=== PATIENT | female | born 1945 | race Caucasian/White ===

== ENCOUNTER 2016-09-30 16:34 | Emergency (ER) | payer MEDICARE ==
[2016-09-30 17:25] LABS: Hematocrit 33 % (35-47); Hemoglobin 10.8 g/dl (12.0-16.0); Mean Corpuscular HGB Conc 33 g/dl (31-36); Mean Corpuscular Hemoglobin 29 pg (27-31); Mean Corpuscular Volume 86 fL (80-97); Mean Platelet Volume 10 um3 (7.4-10.4); Red Blood Count 3.79 10^6/ul (4.0-5.4); Red Cell Distribution Width 14 % (10.5-15); White Blood Count 7.5 10^3/ul (3.5-10.8)
[2016-09-30 17:37] LABS: Urine Bilirubin Negative (Negative); Urine Glucose Negative (Negative); Urine Nitrite Negative (Negative)
[2016-09-30 17:40] LABS: Albumin 3.5 g/dL (3.2-5.2); BUN/Creatinine Ratio 9.8 (8-20); C Reactive Protein 6.49 mg/L (< 5.00); Calcium 7.9 mg/dL (8.6-10.3); EGFR African American 77.6 (>60); EGFR Non-African American 60.3 (>60); Globulin 2.7 g/dL (2-4); Potassium 2.8 mmol/L (3.5-5.0); Total Bilirubin 0.7 mg/dL (0.2-1.0); Total Protein 6.2 g/dL (6.4-8.9)
[2016-09-30 17:43] LABS: Troponin I 0.01 ng/mL (<0.04)
--- NOTE | 2016-09-30 17:45 | RAD ---
Indication: Shortness of breath. Bilateral lower extremity swelling for one week. Cardiac disease and seasonal asthma. Comparison: April 24, 2015 Technique: Sitting AP and lateral chest views. Report: Large body habitus limits image quality. Accounting for AP technique the heart appears upper normal in size. Unremarkable central pulmonary vasculature. Mild prominence of the interstitial markers and RIGHT costophrenic angle linear subsegmental atelectasis. Grossly clear pleural spaces. Negative for pneumothorax. IMPRESSION: Upper normal heart size. No compelling evidence for pulmonary edema. Mild RIGHT basilar subsegmental atelectasis. No compelling evidence for pulmonary edema.
[2016-09-30 18:52] LABS: Magnesium 1.5 mg/dL (1.9-2.7)
[2016-09-30] MEDS ORDERED: Furosemide IV* 10 MG/ML 2 ML VIAL (20 MG) IV SLOW PU ONE (18:57)
[2016-09-30] MEDS ORDERED: Potassium Chlor TAB* 20 MEQ TAB.ER PO ONE (18:58)
[2016-09-30 20:19] VITALS: BP 145/54
--- NOTE | 2016-10-02 17:17 | ED ---
Harpreet Rasmussen Auryana, scribed for Artem Prieto MD on 09/30/16 at 1728 . Lower Extremity - HPI Summary HPI Summary: 70 y/o female presents to ED c/o bilateral edema and pain in the feet. The swelling has come on gradually and has worsened in the past few days. Patient also has SOB, back pain and fever a few days before, but none on ED visit. She denies CP, chills and cough. Patient states it is extremely painful to walk and uses a wheelchair. Patient was recently given compression wraps by a vascular surgeon that seemed to alleviate symptoms, but the patient had difficulty keeping the wraps in place so she abandoned use. PMHx - DM, thyroid disease, and chronic kidney disease. - History of Current Complaint Chief Complaint: EDShortnessOfBreath Stated Complaint: SOB/BOTH FEET SWOLLEN Time Seen by Provider: 09/30/16 16:50 Hx Obtained From: Patient Hx Last Menstrual Period: N/A Mechanism Of Injury: Unknown Onset of Pain: Days, Prior to Arrival Onset/Duration: Still Present Severity Initially: Moderate Severity Currently: Moderate Pain Intensity: 8 Pain Scale Used: 0-10 Numeric Timing: Constant Location: Is Discrete @ - bilateral feet. Associated Signs And Symptoms: Positive: Swelling - bilateral feet, Other - back pain, SOB, and pain - bilateral feet. Negative: Fever Aggravating Factor(s): Standing, Weight Bearing - Extremely painful to walk Alleviating Factor(s): Rest - \, Elevation - Keeps feet up at home in hospital bed Able to Bear Weight: No - Risk Factors Gout Risk Factors: Age Over 40, Diabetes, Hypertension - Allergies/Home Medications Allergies/Adverse Reactions: Allergies Allergy/AdvReac Type Severity Reaction Status Date / Time Tramadol [From Ultram] Allergy Severe Hallucinati Verified 11/17/15 07:02 ons Celecoxib [From Celebrex] Allergy Intermediate Swelling Verified 11/17/15 07:02 Diclofenac Allergy Intermediate GI Upset Verified 11/17/15 07:02 Fluconazole [From Diflucan] Allergy Intermediate Hives Verified 11/17/15 07:02 Ibuprofen [From Motrin] Allergy Intermediate Bleeding Verified 11/17/15 07:02 Loratadine [From Claritin] Allergy Intermediate Hives Verified 11/17/15 07:02 Metoclopramide [From Reglan] Allergy Intermediate Hives Verified 11/17/15 07:02 Rofecoxib [From Vioxx] Allergy Intermediate Swelling Verified 11/17/15 07:02 Gabapentin Allergy Mild Swelling Verified 11/17/15 07:02 Topiramate Allergy Mild See Comment Verified 11/17/15 07:02 Acetaminophen [From Vicodin] Allergy Unknown STATES Verified 11/17/15 07:02 CANNOT TAKE BECAUSE OF HER KIDNEYS CI Pigment Blue 63 Allergy Unknown Swelling Verified 11/17/15 07:02 [From Cymbalta] Duloxetine [From Cymbalta] Allergy Unknown Swelling Verified 11/17/15 07:02 Glycerin Allergy Unknown SWELLING, Verified 11/17/15 07:02 HIVES Hydrocodone [From Vicodin] Allergy Unknown Swelling Verified 11/17/15 07:02 Omeprazole [From Prilosec] Allergy Unknown STATES Verified 11/17/15 07:02 WASN'T HELPING Sulfa Antibiotics Allergy Unknown Unknown Verified 11/17/15 07:02 Reaction Details Valdecoxib [From Bextra] Allergy Unknown Unknown Verified 11/17/15 07:02 Reaction Details Adhesive Tape Allergy Unknown Verified 11/17/15 07:02 Reaction Details Hydromorphone Allergy Swelling Verified 11/17/15 07:02 Metaxalone [From Skelaxin] Allergy Unknown Verified 11/17/15 07:02 Reaction Details Pregabalin [From Lyrica] Allergy Swelling Verified 11/17/15 07:02 Codeine AdvReac Severe Hallucinati Verified 11/17/15 07:02 ons Misoprostol AdvReac Intermediate GI Upset Verified 11/17/15 07:02 Morphine AdvReac Intermediate Nausea Verified 11/17/15 07:02 Penicillins [PCN] AdvReac Unknown Unknown Verified 11/17/15 07:02 Reaction Details Tetracycline AdvReac Unknown Unknown Verified 11/17/15 07:02 Reaction Details PMH/Surg Hx/FS Hx/Imm Hx Endocrine/Hematology History: Reports: Hx Diabetes - TYPE II- INSULIN FOR, Hx Thyroid Disease - ON MEDICATION FOR, Hx Anemia - OCCASIONALLY Cardiovascular History: Reports: Hx Hypertension - ON MEDICATION FOR, Other Cardiovascular Problems/Disorders - DR. MUNOZ- [employer] Respiratory History: Reports: Hx Asthma - SEASONAL, Hx Seasonal Allergies, Hx Sleep Apnea Denies: Hx Chronic Obstructive Pulmonary Disease (COPD), Other Respiratory Problems/Disorders GI History: Reports: Hx Gastroesophageal Reflux Disease - ON MEDICATION FOR, Hx Hiatal Hernia Denies: Hx Ulcer Musculoskeletal History: Reports: Hx Arthritis - BILATERAL FEET, RIGHT KNEE, BILATERAL SHOULDERS-OSTEOARTHRITIS, Hx Fibromyalgia, Other Musculoskeletal History - FIBROMYALGIA Sensory History: Reports: Hx Cataracts - BILATERAL, Hx Contacts or Glasses - GLASSES Denies: Hx Hearing Aid Opthamlomology History: Reports: Hx Cataracts - BILATERAL, Hx Contacts or Glasses - GLASSES Neurological History: Reports: Hx Headaches, Hx Migraine - occular, Other Neuro Impairments/Disorders - FIBROMYALGIA Psychiatric History: Reports: Hx Depression - Cancer History Hx Chemotherapy: No Hx Radiation Therapy: No - Surgical History Surgery Procedure, Year, and Place: [id number]. 1982-REMOVAL OF GALLBLADDER- [facility]. 1997-LEFT CARPAL TUNNEL RELEASE-[facility] [place]. 1998-RIGHT CARPAL TUNNEL RELEASE-[facility]. REPAIR MULIPLE BREAKS IN THE RIGHT [id number]. REMOVE TUMOR LEFT HAND- [facility] [place]. LEFT AND RIGHT CATARACT REMOVAL- [facility] [place] Hx Anesthesia Reactions: Yes - STARTED TO WAKE A LITTLE TOO SOON WITH 1 CARPAL TUNNEL AND 1 CATARACT Infectious Disease History: No Infectious Disease History: Denies: Hx Clostridium Difficile, Hx Hepatitis, Hx Human Immunodeficiency Virus (HIV), Hx of Known/Suspected MRSA, Hx Shingles, Hx Tuberculosis, Hx Known/ Suspected VRE, Hx Known/Suspected VRSA, History Other Infectious Disease, Traveled Outside the in Last 30 Days - Family History Known Family History: Positive: Cardiac Disease - [place], Other - Stroke, skin cancer - Social History Occupation: Retired Lives: Alone Alcohol Use: None Substance Use Type: Reports: None, Prescribed Substance Use Comment - Amount & Last Used: NEEDED DILAUDID FOR PAIN Hx Tobacco Use: Yes Smoking Status (MU): Former Smoker Type: Cigarettes Amount Used/How Often: 2-3 PPD X 35 Have You Smoked in the Last Year: No Review of Systems Negative: Fever - reports fever few days ago - none on arrival to ED, Chills Eyes: Negative ENT: Negative Cardiovascular: Negative Negative: Chest Pain Positive: Shortness Of Breath. Negative: Cough Gastrointestinal: Negative Genitourinary: Negative Positive: Myalgia - Back pain (feels like UTI); bilateral feet pain, Edema - bilateral feet Skin: Negative Neurological: Negative Psychological: Normal All Other Systems Reviewed And Are Negative: Yes Physical Exam - Summary Physical Exam Summary: VITAL SIGNS: Reviewed. GENERAL: Patient is a well-developed and obese female who is lying comfortable in the stretcher. Patient is not in any acute respiratory distress. HEAD AND FACE: No signs of trauma. No ecchymosis, hematomas or skull depressions. No sinus tenderness. EYES: PERRLA, EOMI x 2, No injected conjunctiva, no nystagmus. EARS: Hearing grossly intact. Ear canals and tympanic membranes are within normal limits. MOUTH: Oropharynx within normal limits. NECK: Supple, trachea is midline, no adenopathy, no JVD, no carotid bruit, no c- spine tenderness, neck with full ROM. CHEST: Symmetric, no tenderness at palpation LUNGS: Clear to auscultation bilaterally. No wheezing or crackles. CVS: Regular rate and rhythm, S1 and S2 present, no murmurs or gallops appreciated. ABDOMEN: Soft, non-tender. No signs of distention. No rebound no guarding, and no masses palpated. Bowel sounds are normal. EXTREMITIES: FROM in all major joints, no cyanosis or clubbing. 4+ edema in both feet. NEURO: Alert and oriented x 3. No acute neurological deficits. Speech is normal and follows commands. SKIN: Dry and warm. Triage Information Reviewed: Yes Vital Signs On Initial Exam: Initial Vitals Temp Pulse Resp BP Pulse Ox 97.0 F 66 20 170/56 97 09/30/16 16:39 09/30/16 16:39 09/30/16 16:39 09/30/16 16:39 09/30/16 16:39 Vital Signs Reviewed: Yes Diagnostics - Vital Signs Vital Signs Temp Pulse Resp BP Pulse Ox 09/30/16 16:42 97.8 F 60 20 170/56 99 09/30/16 16:39 97.0 F 66 20 170/56 97 - Laboratory Lab Results: Lab Results 09/30/16 09/30/16 09/30/16 Range/Units 17:13 17:13 17:13 WBC 7.5 (3.5-10.8) 10^3/ul RBC 3.79 L (4.0-5.4) 10^6/ul Hgb 10.8 L (12.0-16.0) g/dl Hct 33 L (35-47) % MCV 86 (80-97) fL MCH 29 (27-31) pg MCHC 33 (31-36) g/dl RDW 14 (10.5-15) % Plt Count 223 (150-450) 10^3/ul MPV 10 (7.4-10.4) um3 Neut % (Auto) 71.0 (38-83) % Lymph % (Auto) 13.7 L (25-47) % [place] % (Auto) 8.2 (1-9) % Eos % (Auto) 2.1 (0-6) % Baso % (Auto) 5.0 H (0-2) % Absolute Neuts (auto) 5.3 (1.5-7.7) 10^3/ul Absolute Lymphs (auto) 1.0 (1.0-4.8) 10^3/ul Absolute Monos (auto) 0.6 (0-0.8) 10^3/ul Absolute Eos (auto) 0.2 (0-0.6) 10^3/ul Absolute Basos (auto) 0.4 H (0-0.2) 10^3/ul Absolute Nucleated RBC 0 10^3/ul Nucleated RBC % 0 Sodium 137 (133-145) mmol/L Potassium 2.8 L (3.5-5.0) mmol/L Chloride 96 L (101-111) mmol/L Carbon Dioxide 33 H (22-32) mmol/L Anion Gap 8 (2-11) mmol/L BUN 9 (6-24) mg/dL Creatinine 0.92 (0.51-0.95) mg/dL Est GFR ( Amer) 77.6 (>60) Est GFR (Non-Af Amer) 60.3 (>60) BUN/Creatinine Ratio 9.8 (8-20) Glucose 236 H (70-100) mg/dL Lactic Acid 2.6 H* (0.5-2.0) mmol/L Calcium 7.9 L (8.6-10.3) mg/dL Magnesium 1.5 L (1.9-2.7) mg/dL Total Bilirubin 0.70 (0.2-1.0) mg/dL AST 24 (13-39) U/L ALT 13 (7-52) U/L Alkaline Phosphatase 84 (34-104) U/L Total Creatine Kinase 64 (10-223) U/L CK-MB (CK-2) 1.8 (0.6-6.3) ng/mL Troponin I 0.01 (<0.04) ng/mL C-Reactive Protein 6.49 H (< 5.00) mg/L B-Natriuretic Peptide ( - 100) pg/mL Total Protein 6.2 L (6.4-8.9) g/dL Albumin 3.5 (3.2-5.2) g/dL Globulin 2.7 (2-4) g/dL Albumin/Globulin Ratio 1.3 (1-3) Urine Color Urine Appearance Urine pH (5-9) Ur Specific [place] (1.010-1.030) Urine Protein (Negative) Urine Ketones (Negative) Urine Blood (Negative) Urine Nitrate (Negative) Urine Bilirubin (Negative) Urine Urobilinogen (Negative) Ur Leukocyte Esterase (Negative) Urine Glucose (Negative) 09/30/16 09/30/16 Range/Units 17:13 17:13 WBC (3.5-10.8) 10^3/ul RBC (4.0-5.4) 10^6/ul Hgb (12.0-16.0) g/dl Hct (35-47) % MCV (80-97) fL MCH (27-31) pg MCHC (31-36) g/dl RDW (10.5-15) % Plt Count (150-450) 10^3/ul MPV (7.4-10.4) um3 Neut % (Auto) (38-83) % Lymph % (Auto) (25-47) % [place] % (Auto) (1-9) % Eos % (Auto) (0-6) % Baso % (Auto) (0-2) % Absolute Neuts (auto) (1.5-7.7) 10^3/ul Absolute Lymphs (auto) (1.0-4.8) 10^3/ul Absolute Monos (auto) (0-0.8) 10^3/ul Absolute Eos (auto) (0-0.6) 10^3/ul Absolute Basos (auto) (0-0.2) 10^3/ul Absolute Nucleated RBC 10^3/ul Nucleated RBC % Sodium (133-145) mmol/L Potassium (3.5-5.0) mmol/L Chloride (101-111) mmol/L Carbon Dioxide (22-32) mmol/L Anion Gap (2-11) mmol/L BUN (6-24) mg/dL Creatinine (0.51-0.95) mg/dL Est GFR ( Amer) (>60) Est GFR (Non-Af Amer) (>60) BUN/Creatinine Ratio (8-20) Glucose (70-100) mg/dL Lactic Acid (0.5-2.0) mmol/L Calcium (8.6-10.3) mg/dL Magnesium (1.9-2.7) mg/dL Total Bilirubin (0.2-1.0) mg/dL AST (13-39) U/L ALT (7-52) U/L Alkaline Phosphatase (34-104) U/L Total Creatine Kinase (10-223) U/L CK-MB (CK-2) (0.6-6.3) ng/mL Troponin I (<0.04) ng/mL C-Reactive Protein (< 5.00) mg/L B-Natriuretic Peptide 107 H ( - 100) pg/mL Total Protein (6.4-8.9) g/dL Albumin (3.2-5.2) g/dL Globulin (2-4) g/dL Albumin/Globulin Ratio (1-3) Urine Color Straw Urine Appearance Clear Urine pH 6.0 (5-9) Ur Specific [place] 1.004 L (1.010-1.030) Urine Protein Negative (Negative) Urine Ketones Negative (Negative) Urine Blood Negative (Negative) Urine Nitrate Negative (Negative) Urine Bilirubin Negative (Negative) Urine Urobilinogen Negative (Negative) Ur Leukocyte Esterase Negative (Negative) Urine Glucose Negative (Negative) Result Diagrams: 09/30/16 17:13 09/30/16 17:13 Lab Statement: Any lab studies that have been ordered have been reviewed, and results considered in the medical decision making process. - Radiology Chest XRAY Xray Interpretation: No Acute Changes - Upper normal heart size. No compelling evidence for pulmonary edema. Mild RIGHT basilar subsegmental atelectasis. No compelling evidence for pulmonary edema. Radiology Interpretation Completed By: Radiologist - EKG 17:48 EKG Interpretation: Sinus brachycardia @ 56 bpm, ST depressions @ V3, V4, and V5 EKG Comparison: Other - ST depressions @ V3, V4, and V5 changed from EKG on 05/04 Re-Evaluation - Re-Evaluation 18:37 Re-Evaluation Time: 18:37 Change: Improved - Patient feels better, no SOB Lower Extremity Course/Dx - Course Assessment/Plan: 70 y/o female presents to ED c/o bilateral edema and pain in the feet. The swelling has come on gradually and has worsened in the past few days. Patient also has SOB, back pain and fever a few days before, but none on ED visit. She denies CP, chills and cough. Patient states it is extremely painful to walk and uses a wheelchair. Patient was recently given compression wraps by a vascular surgeon that seemed to alleviate symptoms, but the patient had difficulty keeping the wraps in place so she abandoned use. PMHx - DM, thyroid disease, and chronic kidney disease. Blood work shows slight chronic anemia, Potassium 2.8, Glucose 236, BNP 107, BUN/Creatinine normal, UA (-) UTI. CXR shows no pulmonary edema and no PNA. In the ED course the patient was given Lasix for bilateral lower extremity edema and Potassium for hypokalemia. She will be taken her magnesium pills for hypomagnesemia. At this point I discussed my exam findings and assessment with the patient, and the patient agreed to follow up with her PCP. I also instructed the patient to continue taking Torsemide. The patient is hemodynamically stable and A&Ox3. I discussed all the findings and test results with the patient. Patient was instructed to return to the emergency room immediately if any of the symptoms return or worsens. Plan of care was discussed with the patient and understands and agrees. All questions were answered at patient satisfaction. There were no further complaints or concerns. Lung exam before discharge: CTA B/L. Good air exchange. No wheezing or crackles heard. CVS: S1 and S2 present. No murmurs appreciated. Patient is alert and oriented x 3. Patient is hemodynamically stable. Patient will be discharged home with follow up PCP in the next 2-3 days - Diagnoses Differential Diagnosis/HQI/PQRI: Positive: Other - Chronic Lower extremity edema Provider Diagnoses: Bilateral lower extremity edema Discharge - Discharge Plan Condition: Stable Disposition: HOME Patient Education Materials: Leg Edema (ED) Referrals: Bravo West MD [Primary Care Provider] - 3 Days (Please follow up in 2-3 days.) The documentation as recorded by the Harpreet reddy Auryana accurately reflects the service I personally performed and the decisions made by me, Artem Prieto MD.
== END 2016-09-30 20:30 | disposition home or self-care (01) ==
LOC: ED 16:34
DX: R60.0 Localized edema (principal); R00.1 Bradycardia, unspecified; R06.02 Shortness of breath; M54.9 Dorsalgia, unspecified; E11.9 Type 2 diabetes mellitus without complications; Z79.4 Long term (current) use of insulin; I10 Essential (primary) hypertension; J45.909 Unspecified asthma, uncomplicated; K21.9 Gastro-esophageal reflux disease without esophagitis; M19.072 Primary osteoarthritis, left ankle and foot; M19.071 Primary osteoarthritis, right ankle and foot; M17.11 Unilateral primary osteoarthritis, right knee; M19.011 Primary osteoarthritis, right shoulder; M19.012 Primary osteoarthritis, left shoulder; M79.7 Fibromyalgia; E66.9 Obesity, unspecified; E89.0 Postprocedural hypothyroidism; Z90.49 Acquired absence of other specified parts of digestive tract; Z98.42 Cataract extraction status, left eye; Z98.41 Cataract extraction status, right eye; Z88.1 Allergy status to other antibiotic agents; Z88.6 Allergy status to analgesic agent; Z88.5 Allergy status to narcotic agent; Z88.0 Allergy status to penicillin; Z88.2 Allergy status to sulfonamides; Z88.8 Allergy status to other drugs, medicaments and biological substances; Z87.891 Personal history of nicotine dependence
CPT/HCPCS: 36415; 71020; 80053; 81003; 82550; 82553; 83605; 83735; 83880; 84484; 85025; 86140; 93005; 96374; 99283; A9270-GY; J1940

== ENCOUNTER 2018-05-28 01:52 | Observation (INO) | payer MEDICARE ==
[2018-05-28] MEDS ORDERED: Aspirin 81 mg CHEW TAB* 81 MG TAB.CHEW PO ONE (02:41)
[2018-05-28] MEDS ORDERED: Morphine VIAL* 10 MG/ML 1 ML VIAL IV ONE (02:41)
[2018-05-28] MEDS ORDERED: Ondansetron INJ* 2 MG/ML VIAL IV ONE (02:41)
[2018-05-28 02:57] LABS: ABS Basophils 0.1 10^3/ul (0-0.2); ABS Eosinophils 0.2 10^3/ul (0-0.6); ABS Lymphocytes 1.8 10^3/ul (1.0-4.8); ABS Monocytes 0.6 10^3/ul (0-0.8); ABS Neutrophils 5.6 10^3/ul (1.5-7.7); ABS Nucleated RBC 0 10^3/ul; Eosinophil % 2.5 %; Hematocrit 34 % (35-47); Hemoglobin 11.9 g/dl (12.0-16.0); Lymphocyte % 21.7 %; Mean Corpuscular HGB Conc 35 g/dl (31-36); Mean Corpuscular Hemoglobin 31 pg (27-31); Mean Corpuscular Volume 90 fL (80-97); Mean Platelet Volume 9.5 fL (7.4-10.4); Nucleated Red Blood Cells % 0; Platelet Count 250 10^3/ul (150-450); Red Blood Count 3.79 10^6/ul (4.00-5.40); Red Cell Distribution Width 14 % (10.5-15); White Blood Count 8.4 10^3/ul (3.5-10.8)
--- NOTE | 2018-05-28 03:00 | ED ---
HPI Chest Pain - HPI Summary HPI Summary: Pt is a 72 y/o F presenting to the ED with a chief complaint of chest tightness onset the past couple of days with intermittent episodes until it became constant tonight around 2200. She felt warm whih went away, and had palpitations which are not new. She has had two cardiac stress tests, one of which she completed and is unsure of the results. - History of Current Complaint Chief Complaint: EDShortnessOfBreath Time Seen by Provider: 05/28/18 02:24 Hx Obtained From: Patient Hx Last Menstrual Period: N/A Onset/Duration: Started Hours Ago, Still Present Time of Onset: 22:00 Timing: Constant, Lasting Hours Initial Severity: Moderate Current Severity: Moderate Pain Intensity: 6 Pain Scale Used: 0-10 Numeric Chest Pain Location: Diffuse Chest Pain Radiates: No Character: Tightness Aggravating Factor(s): Nothing Alleviating Factor(s): Nothing Associated Signs and Symptoms: Positive: Palpitations, Other: - felt warm, did not take temp. Negative: Diaphoresis - Allergy/Home Medications Allergies/Adverse Reactions: Allergies Allergy/AdvReac Type Severity Reaction Status Date / Time codeine Allergy Severe Hallucinati Verified 05/28/18 04:40 ons celecoxib [From Celebrex] Allergy Intermediate Swelling Verified 05/28/18 04:32 fluconazole Allergy Intermediate Hives Verified 05/28/18 04:32 loratadine Allergy Intermediate Hives Verified 05/28/18 04:32 metoclopramide [From Reglan] Allergy Intermediate Hives Verified 05/28/18 04:32 morphine Allergy Intermediate Nausea Verified 05/28/18 04:40 rofecoxib [From Vioxx] Allergy Intermediate Swelling Verified 05/28/18 04:32 gabapentin Allergy Mild Swelling Verified 05/28/18 04:32 topiramate Allergy Mild See Comment Verified 05/28/18 04:32 metaxalone Allergy Unknown Verified 05/28/18 04:40 Reaction Details Penicillins Allergy Unknown Verified 05/28/18 04:40 Reaction Details pregabalin Allergy Swelling Verified 05/28/18 04:40 tetracycline Allergy Unknown Verified 05/28/18 04:40 Reaction Details tramadol AdvReac Severe Hallucinati Verified 05/28/18 04:32 ons diclofenac AdvReac Intermediate GI Upset Verified 05/28/18 04:32 ibuprofen AdvReac Intermediate Bleeding Verified 05/28/18 04:32 misoprostol AdvReac Intermediate GI Upset Verified 05/28/18 04:40 Home Medications: Home Medications Chlorthalidone TAB* [Hygroton TAB*] 50 mg PO DAILY 05/28/18 [History Confirmed 05/28/18] Citalopram Hydrobromide [Citalopram HBr] 40 mg PO DAILY 05/28/18 [History Confirmed 05/28/18] Clotrimazole SEBASTIEN* [Mycelex Sebastien*] 10 mg PO DAILY 05/28/18 [History Confirmed 05/28/18] Clotrimazole/Betamethasone* [Lotrisone Cream*] 1 applic TOPICAL BID 05/28/18 [ History Confirmed 05/28/18] Hydromorphone HCl 4 mg PO Q6HR PRN 05/28/18 [History Confirmed 05/28/18] Lisinopril TAB* [Prinivil TAB 5 MG*] 5 mg PO DAILY 05/28/18 [History Confirmed 05/28/18] Nystatin TOP POWDER* 1 applic TOPICAL Q8HR 05/28/18 [History Confirmed 05/28/18] Potassium Chlor TAB* [Potassium Chlor TAB 20 MEQ*] 40 meq PO DAILY 05/28/18 [ History Confirmed 05/28/18] PMH/Surg Hx/FS Hx/Imm Hx Previously Healthy: No Endocrine/Hematology History: Reports: Hx Diabetes - TYPE II- INSULIN FOR, Hx Thyroid Disease - ON MEDICATION FOR, Hx Anemia - OCCASIONALLY Cardiovascular History: Reports: Hx Hypertension - ON MEDICATION FOR, Other Cardiovascular Problems/Disorders - DR. MUNOZ- [employer] Respiratory History: Reports: Hx Asthma - SEASONAL, Hx Seasonal Allergies, Hx Sleep Apnea Denies: Hx Chronic Obstructive Pulmonary Disease (COPD), Other Respiratory Problems/Disorders GI History: Reports: Hx Gastroesophageal Reflux Disease - ON MEDICATION FOR, Hx Hiatal Hernia Denies: Hx Ulcer Musculoskeletal History: Reports: Hx Arthritis - BILATERAL FEET, RIGHT KNEE, BILATERAL SHOULDERS-OSTEOARTHRITIS, Hx Fibromyalgia, Other Musculoskeletal History - FIBROMYALGIA Sensory History: Reports: Hx Cataracts - BILATERAL, Hx Contacts or Glasses - GLASSES Denies: Hx Hearing Aid Opthamlomology History: Reports: Hx Cataracts - BILATERAL, Hx Contacts or Glasses - GLASSES Neurological History: Reports: Hx Headaches, Hx Migraine - occular, Other Neuro Impairments/Disorders - FIBROMYALGIA Psychiatric History: Reports: Hx Depression - Cancer History Hx Chemotherapy: No Hx Radiation Therapy: No - Surgical History Surgery Procedure, Year, and Place: [id number]. 1982-REMOVAL OF GALLBLADDER- [facility]. [place] [place] [facility]AL [place]UNNEL RE[place]. REPAIR MULIPLE BREAKS IN THE RIGHT [id number]. [place] [facility] [place] [facility] [place] Anesthesia Reactions: Yes - STARTED TO WAKE A LITTLE TOO SOON WITH 1 CARPAL TUNNEL AND 1 CATARACT Infectious Disease History: No Infectious Disease History: Denies: Hx Clostridium Difficile, Hx Hepatitis, Hx Human Immunodeficiency Virus (HIV), Hx of Known/Suspected MRSA, Hx Shingles, Hx Tuberculosis, Hx Known/ Suspected VRE, Hx Known/Suspected VRSA, History Other Infectious Disease, Traveled Outside the in Last 30 Days - Family History Known Family History: Positive: Cardiac Disease - [place], Other - Stroke, skin cancer - Social History Alcohol Use: None Substance Use Type: Reports: None Substance Use Comment - Amount & Last Used: NEEDED DILAUDID FOR PAIN Hx Tobacco Use: Yes Smoking Status (MU): Former Smoker Type: Cigarettes Amount Used/How Often: 2-3 PPD X 35 Have You Smoked in the Last Year: No Review of Systems Negative: Fever Positive: Palpitations, Chest Pain All Other Systems Reviewed And Are Negative: Yes Physical Exam - Summary Physical Exam Summary: VITAL SIGNS: Reviewed. GENERAL: Patient is a morbidly obese female who is lying comfortable in the stretcher. Patient is not in any acute respiratory distress. HEAD AND FACE: No signs of trauma. No ecchymosis, hematomas or skull depressions. No sinus tenderness. EYES: PERRLA, EOMI x 2, No injected conjunctiva, no nystagmus. EARS: Hearing grossly intact. Ear canals and tympanic membranes are within normal limits. MOUTH: Oropharynx within normal limits. NECK: Supple, trachea is midline, no adenopathy, no JVD, no carotid bruit, no c- spine tenderness, neck with full ROM. CHEST: Symmetric, no tenderness at palpation LUNGS: Clear to auscultation bilaterally. No wheezing or crackles. CVS: Regular rate and rhythm, S1 and S2 present, no murmurs or gallops appreciated. ABDOMEN: Soft, non-tender. No signs of distention. No rebound no guarding, and no masses palpated. Bowel sounds are normal. EXTREMITIES: FROM in all major joints, no edema, no cyanosis or clubbing. NEURO: Alert and oriented x 3. No acute neurological deficits. Speech is normal and follows commands. SKIN: Dry and warm Triage Information Reviewed: Yes Vital Signs On Initial Exam: Initial Vitals Temp Pulse Resp BP Pulse Ox 97.5 F 70 16 145/65 98 05/28/18 02:00 05/28/18 02:00 05/28/18 02:00 05/28/18 02:00 05/28/18 02:00 Vital Signs Reviewed: Yes Diagnostics - Vital Signs Vital Signs Temp Pulse Resp BP Pulse Ox 05/28/18 02:00 97.5 F 70 16 145/65 98 - Laboratory Result Diagrams: 05/28/18 02:50 05/28/18 02:50 Lab Statement: Any lab studies that have been ordered have been reviewed, and results considered in the medical decision making process. - Radiology Chest x-ray Radiology Interpretation Completed By: ED Physician Summary of Radiographic Findings: Mild bilateral venous congestion. Pending official radiology report. - EKG EKG 1 Cardiac Rate: NL - 68bpm EKG Rhythm: Sinus Rhythm ST Segment: Normal Ectopy: None Summary of EKG Findings: Non-specific T wave changes. Re-Evaluation - Re-Evaluation 1st re-eval Re-Evaluation Time: 03:57 Change: Improved Comment: Pt states she presently feels better. Chest Pain Course/Dx - Course Course Of Treatment: Pt is a 72 y/o F presenting to the ED with a chief complaint of chest tightness onset the past couple of days with intermittent episodes until it became constant tonight around 2200. Bloodwork obtained. EKG shows NSR 68bpm with non-specific T wave changes. Chest x-ray shows mild bilateral venous congestion. Dr. Henriquez will be accepting the pt for admission. - Diagnoses Provider Diagnoses: Chest pain Discharge - Sign-Out/Discharge Documenting (check all that apply): Patient Departure - Discharge Plan Condition: Good Disposition: ADMITTED TO [facility] - Billing Disposition and Condition Condition: GOOD Disposition: Admitted to [facility] - Attestation Statements Document Initiated by Scribe: Yes Documenting Scribe: Rivka Murillo Provider For Whom Scribe is Documenting (Include Credential): Patricia Woods MD. Scribe Attestation: IRivka, scribed for Patricia Woods MD. on 05/28/18 at 2356. Scribe Documentation Reviewed: Yes Provider Attestation: The documentation as recorded by the scribe, Rivka Murillo accurately reflects the service I personally performed and the decisions made by me, Patricia Woods MD. Status of Scribe Document: Viewed Consult Consult: [id number] - Spoke with Dr. Henriquez about the pt's present condition, who [place] be [place] [facility] [place]
[2018-05-28 03:15] LABS: Activated Partial Thrombo Time 28.9 seconds (26.0-36.3); INR 1.06 (0.77-1.02)
[2018-05-28 03:22] LABS: Albumin 3.8 g/dL (3.2-5.2); Albumin/Globulin Ratio 1.5 (1-3); BUN/Creatinine Ratio 13.5 (8-20); Calcium 9.2 mg/dL (8.6-10.3); EGFR Non-African American 52.1 (>60); Globulin 2.6 g/dL (2-4); Magnesium 1.5 mg/dL (1.9-2.7); Potassium 3.9 mmol/L (3.5-5.0); Total Bilirubin 0.6 mg/dL (0.2-1.0); Total Protein 6.4 g/dL (6.4-8.9)
[2018-05-28] MEDS ORDERED: Al Hydrox/Mg Hydrox/Simet LIQ* 30 ML UDC PO PRN (04:22)
[2018-05-28] MEDS ORDERED: Ondansetron INJ* 2 MG/ML VIAL IV PRN (04:22)
[2018-05-28] MEDS ORDERED: Acetaminophen TAB* 325 MG PO PRN (04:22)
[2018-05-28] MEDS ORDERED: Magnesium Sulfate 2 GM IV* 2 GM/50 ML BAG IVPB ONE (04:24)
[2018-05-28] MEDS ORDERED: Dextrose 50% Syringe 50 ML* 25 GM/50 ML SYRINGE IV PUSH PRN (04:24)
[2018-05-28] MEDS ORDERED: Levalbuterol HFA INHALER* 1 PUFF MDI INH PRN (04:25)
[2018-05-28] MEDS ORDERED: Fluticasone NASAL SPRAY 50MCG* 16 gm SPRAY BTL BOTH NARES PRN (04:25)
[2018-05-28] MEDS: HYDROmorphone TAB* 4 MG PO PRN ×2 (05:26→13:51)
[2018-05-28] MEDS ORDERED: Levothyroxine TAB* 100 MCG TAB PO SCH (06:00)
[2018-05-28] MEDS ORDERED: Heparin VIAL(*) 5000 UNITS/ML VIAL (FIVE THOUSAND) SUBCUT SCH (06:00)
[2018-05-28] MEDS: Nystatin TOP POWDER* 15 GM BTL TOPICAL SCH (08:16)
[2018-05-28] MEDS ORDERED: Citalopram TAB* 40 MG PO SCH (09:00)
[2018-05-28] MEDS ORDERED: Potassium Chlor TAB* 20 MEQ TAB.ER PO SCH (09:00)
[2018-05-28] MEDS ORDERED: Metoprolol Tartrate TAB* 100 MG TAB PO SCH (09:00)
[2018-05-28] MEDS ORDERED: Insulin GLARGINE(*) 1 UNITS UNIT SUBCUT SCH (09:00)
[2018-05-28] MEDS ORDERED: Pantoprazole TAB * 40 MG TAB PO SCH (09:00)
[2018-05-28] MEDS ORDERED: Lisinopril TAB* 5 MG PO SCH (09:00)
[2018-05-28] MEDS ORDERED: Chlorthalidone TAB* 50 MG PO SCH (09:00)
[2018-05-28] MEDS ORDERED: Aspirin EC TAB* 81 MG TAB.EC PO SCH (09:00)
--- NOTE | 2018-05-28 09:24 | ECHO ---
Patient: PETTY DAVIS [facility] Rec#: [id number] : 1945 Date: 05/28/2018 Age: 72y Height: 168 cm / 66.1 in Weight: 127 kg / 279.9 lbs Sex: F BSA: 2.31 Room#: [facility] Admit Date#: 05/28/2018 Type: Inpatient Referring: Rivka Herniquez Reading: Gayle Rae MD [employer] Specialist: Zee Paredes RDCS CC: Lexis Chicas MD CC: Bravo West MD Transthoracic Echocardiogram Indication: Chest Pain BP: 137/54 HR: 77 Rhythm: NSR Findings History: DM II, thyroid disease, HTN, former smoker, morbid obesity. Technical Comments: The study quality is fair. Completed at 0850. Left Ventricle: The left ventricular chamber size is normal. Mild concentric left ventricular hypertrophy is observed. There is normal left ventricular systolic function. The estimated ejection fraction is 55-60%. There is septal flattening of the interventricular septum consistent with right ventricular volume or pressure overload. Abnormal left ventricular diastolic function is observed. The left ventricular diastolic filling pattern is consistent with pseudonormalization. Left Atrium: The left atrium is moderately dilated. Right Ventricle: Moderator Band present. The right ventricle is mildly dilated. The right ventricle wall thickness is mildly increased. The right ventricular global systolic function is normal. Right Atrium: The right atrium is mildly dilated. Aortic Valve: The aortic valve is trileaflet. There is mild thickening of the right coronary cusp. There is moderate thickening of the non coronary cusp. There is evidence of aortic sclerosis without stenosis. There is a trace of aortic regurgitation. There is no evidence of aortic stenosis. Mitral Valve: The mitral valve leaflets are mildly thickened. There is trace to mild mitral regurgitation. There is no evidence of mitral stenosis. Tricuspid Valve: The tricuspid valve leaflets are normal. There is trace tricuspid regurgitation. Unable to estimate the right ventricular systolic pressure. There is no tricuspid stenosis. Pulmonic Valve: The pulmonic valve appears normal. There is a trace pulmonic regurgitation. There is no pulmonic stenosis. Pericardium: There is no significant pericardial effusion. A pericardial fat pad is visualized. Aorta: There is no dilatation of the ascending aorta. There is no dilatation of the aortic arch. The aortic root is normal in size. Pulmonary Artery: The main pulmonary artery is not well visualized. Venous: The venous system is not well visualized. The inferior vena cava appears normal in size. There is a greater than 50% respiratory change in the inferior vena cava dimension. Summary: There are no significant changes when compared to the previous study done on 01/13/2014, no overt significant changes. Conclusions The left ventricular chamber size is normal. Mild concentric left ventricular hypertrophy is observed. The estimated ejection fraction is 55-60%. There is septal flattening of the interventricular septum consistent with right ventricular volume or pressure overload. The left atrium is moderately dilated. The right atrium is mildly dilated. There is a trace of aortic regurgitation. There is trace to mild mitral regurgitation. There is trace tricuspid regurgitation. Unable to estimate the right ventricular systolic pressure. Measurements Name Value Normal Range RVIDd (AP) 2D 3.8 cm (0.9 - 2.6) RVDdMajor (2D) 4.6 cm (2.2 - 4.4) RVAW (2D) 0.9 cm (0.2 - 0.5) RAd ISD 4CH 5.2 cm (3.4 - 4.9) RA (A4C)W 4.5 cm (2.9 - 4.6) IVSd (2D) 1.1 cm (0.6 - 1) LVPWd (2D) 1.1 cm (0.6 - 1) LVIDd (2D) 5 cm (3.6 - 5.4) LVIDs (2D) 3.3 cm - LV FS (2D) 34 % (25 - 45) Aortic Annulus 2.3 cm (1.4 - 2.6) Ao root diameter (2D) 3 cm (2.1 - 3.5) Ascending Ao 3.3 cm (2.1 - 3.4) Aortic arch 2.3 cm (1.8 - 3.4) LA dimension (AP) 2D 4.2 cm (2.3 - 3.8) LAd ISD 4CH 6.4 cm (2.9 - 5.3) LA ISD 4CH W 5.4 cm (2.5 - 4.5) Name Value Normal Range LA ESV BP (A/L) index 45 ml/m2 - Name Value Normal Range MV E-wave Vmax 1 m/sec - MV deceleration time 141 msec - MV A-wave Vmax 1.1 m/sec - MV E:A ratio 0.9 ratio - LV septal e' Vmax 0.08 m/sec - LV lateral e' Vmax 0.07 m/sec - LV E:e' septal ratio 12.5 ratio - LV E:e' lateral ratio 14.3 ratio - Name Value Normal Range AV Vmax 1.8 m/sec - AV VTI 36 cm - AV peak gradient 12 mmHg - AV mean gradient 6 mmHg - LVOT diameter 2 cm - LVOT Vmax 1.2 m/sec - LVOT VTI 28 cm - LVOT peak gradient 6 mmHg - LVOT mean gradient 3 mmHg - TIFFANIE Vmax 1 m/sec - Name Value Normal Range IVC diameter 1.5 cm - Name Value Normal Range PV Vmax 1 m/sec - PV peak gradient 4 mmHg -
--- NOTE | 2018-05-28 09:28 | HP ---
CC: Bravo West MD * HISTORY AND PHYSICAL: DATE OF ADMISSION: 05/28/18 TIME OF EVALUATION: 0400 PRIMARY CARE PHYSICIAN: Bravo West MD. CHIEF COMPLAINT: Chest pain. HISTORY OF PRESENT ILLNESS: This is a 72-year-old female with a past medical history of diabetes, hypertension, and obstructive sleep apnea who presents to the emergency room with chest pain and palpitations. Patient states she has had a mild version of chest pain and palpitations over the past few days. This evening around 10 p.m. while she was lying in bed awake she developed chest pain that was radiating down her throat, diaphoresis, and some shortness of breath. She has not been sick with URI illness. No cough or congestion, although as soon as she got to the emergency room she has been coughing. She states she is very sensitive to chemicals and she thinks it is what is causing her coughing. Over the past few days when this started, she did use her inhaler with no improvement. She thought maybe it was her stomach. She has noticed that there is more swelling in her feet. No nausea, vomiting, diarrhea. She had had some constipation. No urinary symptoms or abdominal pain. Patient has stopped her Xanax over the past week because Dr. West says it is dangerous to be taking narcotics and Xanax at the same time, so she stopped herself abruptly. She did not notice any difference. Otherwise, review of systems is negative. In the emergency room, patient had labs and imaging. She was given Zofran 8 mg , morphine 4 mg, aspirin 162, and referred to the hospitalist service for further evaluation. PAST MEDICAL HISTORY: 1. Diabetes. 2. Anxiety. 3. Depression. 4. Chronic pain. 5. Hypertension. 6. Hypothyroidism. 7. Obstructive sleep apnea, on BiPAP. 8. COPD. 9. Morbidly obese. MEDICATIONS: 1. Aspirin 81 mg p.o. daily. 2. Lantus 10 units in the evening and 75 units in the morning. 3. Humalog sliding scale 3 units for every 15 carbs. For every 50 greater than 150, she gives herself an additional 4 units. 4. Flonase 2 sprays both nares as needed. 5. Xopenex 2 puffs every 6 hours as needed. 6. Lotrisone cream topical b.i.d. 7. Nystatin powder topical q.8 hours. 8. Clotrimazole 10 mg p.o. daily. 9. Lisinopril 5 mg daily. 10. Potassium chloride 40 mEq daily. 11. Citalopram 40 mg daily. 12. Chlorthalidone 50 mg daily. 13. Hydromorphone 4 mg every 6 hours as needed. 14. Synthroid 200 mcg p.o. daily. 15. Pantoprazole 40 mg daily. 16. Metoprolol 100 mg p.o. b.i.d. ALLERGIES: Very long list: TRAMADOL, CELEBREX, DICLOFENAC, FLUCONAZOLE, IBUPROFEN, LORATADINE, METOCLOPRAMIDE, VIOXX, GABAPENTIN, TOPIRAMATE, VICODIN, CYMBALTA, PIGMENT BLUE 63, GLYCERIN, HYDROCODONE, OMEPRAZOLE, SULFA, DEXTRA, ADHESIVE TAPE, METAXALONE, PREGABALIN, CODEINE, MISOPROSTOL, MORPHINE, PENICILLIN, and TETRACYCLINE. FAMILY HISTORY: Mother from esophageal cancer. Father related to complication from diabetes. Her twin sister recently passed from pancreatic cancer. SOCIAL HISTORY: Patient lives alone. She is mainly in her wheelchair. She states she gets around relatively okay. She quit smoking in 1996. She smoked for 35 years. No alcohol use or illicit drug use. She is a full code. Her healthcare proxies are her daughters; Rosina is currently at the bedside. REVIEW OF SYSTEMS: A 14-point review of systems as mentioned in the HPI; otherwise, negative. PHYSICAL EXAMINATION GENERAL: In no acute distress. Resting comfortably in the room with her daughter at the bedside. VITAL SIGNS: Temp 97.5, pulse rate 68, respiratory rate 15, oxygen saturation 98 % on room air, blood pressure 142/68. HEENT: Head normocephalic. Pupils are equal and reactive, anicteric. Oropharynx: Mucous membranes are moist. NECK: Supple. No lymphadenopathy. RESPIRATORY: Diminished breath sounds. No wheezes, rhonchi, or rales. CARDIAC: Regular rate and rhythm. Systolic murmur most prominent at the left sternal base. ABDOMEN: Morbidly obese, soft, nontender, and nondistended. EXTREMITIES: +2 pedal edema. NEUROLOGIC: Alert and oriented x3. No gross focal neurological deficits. DIAGNOSTIC STUDIES/LAB DATA: Laboratory Data: White count 8.4, hemoglobin 11.9, hematocrit 34, platelets 250. INR is 1.06. Sodium 138, potassium 3.9, chloride 101, bicarb 29, BUN 14, creatinine 1.04, mag of 1.5. Troponin 0 and BNP of 71. EKG shows normal sinus rhythm and no significant ST changes. Radiographic Data: Chest x-ray, no significant changes. ASSESSMENT: This is a 72-year-old female with a past medical history of diabetes, hypertension, obstructive sleep apnea who presents to the emergency room with chest pain. 1. Chest pain. Assessment: Atypical, but she does have several cardiac risk factors. Patient is refusing a nuclear stress test or an exercise stress test. Plan: We will admit her to the CDU for observation. Continue to trend her troponin, check a lipid panel, and we will order an echocardiogram and go from there. We will continue on her cardiac medications, her home medications, and we will replete her magnesium. 2. Chronic medical problems. Continue her home medications as prescribed. 3. FEN. Continue on a diabetic diet. 4. Obstructive sleep apnea. Will continue on BiPAP. 5. DVT prophylaxis. Patient scores high risk. We will place her on heparin subcu t.i.d. 6. Code status. Full code. PATIENT TIME: Greater than 35 minutes spent doing the history and physical, more than half the time spent in direct patient contact. [id number]/CPS #: [id number] JAYLEN
[2018-05-28] MEDS: Insulin LISPRO* 1 UNITS UNIT SUBCUT SCH ×2 (09:38→13:46)
--- NOTE | 2018-05-28 09:52 | PN ---
Subjective Date of Service: 05/28/18 Interval History: Pt states that she is feeling better today. She came to the ER with c/o 3-4 days of palpitations, chest discomfort, and swelling in the feet and legs. She also admits to 10# weight gain. She states she takes her water pills on an as- needed basis when her legs swell. She consulted her doctor, who recommended daily use of her medication, and doubling up on them for the time being, which she did. This improved the swelling in her legs in the morning, but it worsened by the evening, causing her to come to the ER. Today, she complains of chest pain only with deep breathing. She states that it is not positional and non-tender to palpation. She continues to have SOB on exertion, but denies orthopnea, although she always sleeps with HOB elevated as she finds it uncomfortable to be flat on her back. She has an increase in cough since admission, but believes it is due to her multiple chemical sensitivities. She denies fever/chills, abdominal pain, n/v/d/c. Objective Active Medications: Acetaminophen (Tylenol Tab*) 650 mg PO Q4H PRN Al Hydrox/Mg Hydrox/Simethicone (Maalox Plus*) 30 ml PO Q6H PRN Aspirin (Aspirin Ec Tab*) 81 mg PO DAILY ABY Chlorthalidone (Hygroton Tab*) 50 mg PO DAILY ABY Citalopram Hydrobromide (Celexa Tab*) 40 mg PO DAILY ABY Dextrose (D50w Syringe 50 Ml*) 12.5 gm IV PUSH .FOR FS < 60 - SS PRN Fluticasone Propionate (Flonase Nasal [place] 50mcg*) 2 spray BOTH NARES BEDTIME PRN Heparin Sodium (Porcine) (Heparin Vial(*)) 5,000 units SUBCUT Q8HR ABY Hydromorphone HCl (Dilaudid Tab*) 4 mg PO Q6HR PRN Insulin Glargine (Lantus(*)) 75 units SUBCUT DAILY ABY Insulin Human Lispro (Humalog*) 0 units SUBCUT AC ABY; Protocol Levalbuterol HCl (Xopenex Hfa Inhaler*) 2 puff INH Q6H PRN Levothyroxine Sodium (Synthroid Tab*) 200 mcg PO DAILY@0600 ABY Lisinopril (Prinivil Tab*) 5 mg PO DAILY [facility] Metoprolol Tartrate (Lopressor Tab*) 100 mg PO BID ABY Nystatin (Nystatin Top Powder*) 1 applic TOPICAL Q8HR ABY Ondansetron HCl (Zofran Inj*) 4 mg IV Q4H PRN Pantoprazole Sodium (Protonix Tab*) 40 mg PO QAM ABY Potassium Chloride (Klor Con Er Tab*) 40 meq PO DAILY [facility] Vital Signs: Temp Pulse Resp BP Pulse Ox 98.0 F 75 16 156/55 97 05/28/18 08:47 05/28/18 08:47 05/28/18 08:52 05/28/18 08:47 05/28/18 08:47 Oxygen Devices in Use Now: None Appearance: Pt is sitting at edge of bed. She appears well, in no acute distress. Eyes: No Scleral Icterus, PERRLA Ears/Nose/Mouth/Throat: NL Teeth, Lips, Gums, Clear Oropharnyx, Mucous Membranes Moist Neck: NL Appearance and Movements; NL JVP, Trachea Midline Respiratory: Symmetrical Chest Expansion and Respiratory Effort, Clear to Auscultation, - - without wheeze, rhonchi, rales Cardiovascular: NL Sounds; No Murmurs; No JVD, RRR, - - b/l LE 2+ pitting edema Abdominal: NL Sounds; No Tenderness; No Distention, No Hepatosplenomegaly Extremities: No Clubbing, Cyanosis Neurological: Alert and Oriented x 3 Result Diagrams: 05/28/18 02:50 05/28/18 02:50 Assess/Plan/Problems-Billing Assessment: Pt is a 72yof with PMHx of DM, HTN, VALENTINO, obesity, COPD, hypothyroidism, anxiety , depression, and chronic pain who was admitted for evaluation of atypical chest pain. - Patient Problems (1) Chest pain Comment: -Tele reveals NSR -Troponin negative x2 -Echo relatively unchanged from 01/13/2014 -Pt continues to refuse stress testing -Awaiting lipid profile (2) Edema Comment: -Chlorthalidone 50 this morning (3) Diabetes Comment: -HA1c 8.7 -Continue lantus and ss lispro (4) Hypertension Comment: -Continue home medications (5) DVT prophylaxis Comment: -Continue Heparin SQ (6) Full code status Status and Disposition: Observation. Discharge once medically stable.
[2018-05-28 13:44] VITALS: BP 151/74
--- NOTE | 2018-05-28 14:14 | DS ---
DISCHARGE SUMMARY: DATE OF ADMISSION: 05/28/18 DATE OF DISCHARGE: 05/28/18 PRIMARY CARE PHYSICIAN: Bravo West MD. AGENCY DIRECTOR: Lexis Chicas MD. ATTENDING PROVIDER: Rivka Henriquez MD * (DICTATED BY BERE BAJWA) PRIMARY DIAGNOSIS: Chest pain. SECONDARY DIAGNOSES: 1. Diabetes. 2. Hypertension. 3. Obstructive sleep apnea. 4. Morbid obesity. 5. Chronic obstructive pulmonary disease. 6. Hypothyroidism. 7. Anxiety. 8. Depression. 9. Chronic pain. STUDIES WHILE IN THE HOSPITAL: Chest x-ray, 05/28/18, impression: Pulmonary vascular congestion. Transthoracic echocardiogram, 05/28/18, summary: There are no significant changes when compared to the previous study done on 01/13/14, no overt significant changes. Conclusion: The left ventricular chamber size is normal, mild concentric left ventricular hypertrophy is observed. The estimated ejection fraction is 55% to 60%. There is septal flattening of the interventricular septum consistent with right ventricular volume or pressure overload. The left atrium is moderately dilated. The right atrium is mildly dilated. There is a trace of aortic regurgitation. There is trace to mild mitral regurgitation. There is trace tricuspid regurgitation, unable to estimate the right ventricular systolic pressure. LABORATORY STUDIES: Hemoglobin A1c 8.7, magnesium 1.5. Troponin 0.00, 0.01. BNP 71. Triglycerides 150, cholesterol 109, LDL 47, HDL 32. HISTORY OF PRESENT ILLNESS/HOSPITAL COURSE: Ms. Ryan is a 72-year-old female with past medical history as described above who presented to the ER with complaints of palpitations, chest discomfort, and swelling in bilateral feet for the last 3 to 4 days. She also states that she had a 10 pound weight gain recently. She states that she has been having shortness of breath with activity such as walking to and from the bathroom. In the ER, the patient stated that her chest pain had intensified and was radiating down her throat and had associated symptoms of diaphoresis and shortness of breath. Of note is that the patient recently stopped taking her Xanax approximately 1 week ago per recommendation from her primary care physician. She stopped the medication abruptly, but states that she did not experience any withdrawal symptoms and "didn't notice feeling any different." In the ER, she was administered Zofran, morphine, aspirin. Testing was done and she was admitted to the hospital. The patient received cardiac workup to rule out PA. Troponins were negative x2. Echocardiogram results are as above and remained relatively unchanged from her previous study. The patient refused stress testing in the form of both exercise and nuclear medicine stress testing and continues to refuse these exams. Hemoglobin A1c was elevated. A lipid panel was run and is as above. The patient was monitored on telemetry and no abnormalities were noted and she remained in normal sinus rhythm throughout her stay. Today, she states that she has chest pain, but only with deep breathing. She continues to have shortness of breath with activity. She does complain of a nonproductive cough, which she believes is triggered by hand advertiser used in the hospital stating she has a history of multiple chemical sensitivities. She continues to complain of shortness of breath on exertion, but denies orthopnea. Bilateral lower extremity swelling is decreased, but still present. The patient states she gets this intermittently. She states that she takes her chlorthalidone on an as-needed basis when her legs swell. She consulted her primary care physician in the last couple days who recommended daily use of the medications and also recommended doubling up on them for the time being in order to decrease the swelling. She denies fever, chills, abdominal pain, nausea, vomiting, diarrhea, constipation. Ms. Ryan is stable for discharge home. REVIEW OF SYSTEMS: A 10-point review of systems was performed and all the pertinent positives and negatives are in the HPI. All of these systems are negative. PHYSICAL EXAM: Vital signs are temperature of 98.0 temporally, heart rate of 75 , respiratory rate of 16, oxygen saturation 97% on room air, blood pressure is 156/55. General: Ms. Ryan is a well-developed, well-nourished, obese 72-year- old white female who is sitting at the edge of her bed, in no acute distress. HEENT: Visual iniguez are grossly intact. Pupils are equally round and reactive to light. Extraocular movements intact. Sclerae without icterus. Hearing grossly intact. Oral mucous membranes are moist and without lesions. Pharynx is clear. Neck: Full range of motion. Thyroid not palpable. Trachea midline. Respiratory: Symmetrical chest expansion. No use of accessory muscles. Lungs: Clear to auscultation. No rhonchi, wheezes, or rubs. Cardiovascular: Regular rate and rhythm. S1, S2 present. No murmurs, rubs, or gallops. No JVD. Abdomen: Bowel sounds in all quadrants. Abdomen is soft and nontender to palpation. No hepatosplenomegaly. Extremities: Skin is warm and smooth bilaterally. No clubbing or cyanosis. Radial and pedal pulses palpable bilaterally. Patient has bilateral lower extremity edema that is 2+ pitting. Neuro: Awake, alert, oriented x3. Moves all extremities. DISCHARGE PLAN: Ms. Ryan will be discharged home. ACTIVITY: As tolerated. Elevate feet above the level of the heart whenever possible to avoid venous stasis. TEDs/compression stockings to be worn throughout the day. DIET: ADA/diabetic diet, heart healthy. MEDICATIONS: As above. EDUCATION: 1. Continue chlorthalidone 50 mg daily x4 days. 2. Follow up with primary care physician regarding future use. 3. Follow up with Dr. Chicas to reestablish care. 4. Follow up with primary care physician, Dr. West, in 4 to 7 days to discuss recent hospitalization and use of chlorthalidone. 5. Return to the ER or the nearest hospital if you experience any worsening of symptoms, shortness of breath, lightheadedness, dizziness, chest discomfort, high fever, chills, night sweats, loss of consciousness, or any other worrisome sign or symptom. This is a summarized report of a complex medical history and hospital stay. For further details, please see the entire medical record. TIME SPENT: Approximately 40 minutes were spent on this discharge, greater than half that time spent [id number] with the patient discussing discharge plans and instructions. BERE BAJWA [id number]/CPS #: [id number] JAYLEN
== END 2018-05-28 14:10 | disposition home or self-care (01) ==
LOC: ED 01:52 → MEDTELE 04:22
PROVIDERS: ADMIT Pediatrics; ATTEND Specialist
DX: R07.9 Chest pain, unspecified (principal); E11.9 Type 2 diabetes mellitus without complications; I10 Essential (primary) hypertension; G47.33 Obstructive sleep apnea (adult) (pediatric); E66.01 Morbid (severe) obesity due to excess calories; J44.9 Chronic obstructive pulmonary disease, unspecified; R00.2 Palpitations; E03.9 Hypothyroidism, unspecified; F41.9 Anxiety disorder, unspecified; F32.9 Major depressive disorder, single episode, unspecified; G89.29 Other chronic pain; R06.02 Shortness of breath; R42 Dizziness and giddiness; R60.0 Localized edema; Z88.6 Allergy status to analgesic agent; Z88.2 Allergy status to sulfonamides; Z79.4 Long term (current) use of insulin; Z87.891 Personal history of nicotine dependence
CPT/HCPCS: 36415; 71045; 80053; 80061; 83036; 83735; 83880; 84484; 85025; 85610; 85730; 93005; 93306; 99284; A9270-GY; G0378; J1644; J2270; J2405; J3475

== ENCOUNTER 2018-07-14 14:38 | Emergency (ER) | payer MEDICARE ==
--- NOTE | 2018-07-14 15:07 | ED ---
Hypertension - HPI Summary HPI Summary: This pt is a 72 y/o female, with hx of HTN and migraine, presenting to [facility] c/ o elevated blood pressure and headache. Pt reports she was seen by her physical therapist and was noted to have 181/105 blood pressure. After her PT session pt was noted to have a blood pressure of 200/105. Additionally she notes a headache and bilateral throbbing neck pain. She rates her headache 7 out of 10 in severity and describes it as starting in the back and radiating to the front. Denies nausea, vomiting, visual disturbances. Pt notes her last migraine was 6 years ago. She is on three antihypertensive medications. - History of Current Complaint Chief Complaint: EDHypertension Stated Complaint: HIGH BLOOD PRESSURE PER PT Time Seen by Provider: 07/14/18 14:56 Hx Obtained From: Patient Hx Last Menstrual Period: N/A Onset/Duration: Started Hours Ago, Still Present Timing: Lasting Hours Reported Blood Pressure Prior To Arrival: 200/105 Aggravating Factor(s): Nothing Alleviating Factor(s): Nothing Associated Signs & Symptoms: Headaches, Pain - neck pain - Allergies/Home Medications Allergies/Adverse Reactions: Allergies Allergy/AdvReac Type Severity Reaction Status Date / Time codeine Allergy Severe Hallucinati Verified 05/28/18 04:40 ons celecoxib [From Celebrex] Allergy Intermediate Swelling Verified 05/28/18 04:32 fluconazole Allergy Intermediate Hives Verified 05/28/18 04:32 loratadine Allergy Intermediate Hives Verified 05/28/18 04:32 metoclopramide [From Reglan] Allergy Intermediate Hives Verified 05/28/18 04:32 morphine Allergy Intermediate Nausea Verified 05/28/18 04:40 rofecoxib [From Vioxx] Allergy Intermediate Swelling Verified 05/28/18 04:32 gabapentin Allergy Mild Swelling Verified 05/28/18 04:32 topiramate Allergy Mild See Comment Verified 05/28/18 04:32 metaxalone Allergy Unknown Verified 05/28/18 04:40 Reaction Details Penicillins Allergy Unknown Verified 05/28/18 04:40 Reaction Details pregabalin Allergy Swelling Verified 05/28/18 04:40 tetracycline Allergy Unknown Verified 05/28/18 04:40 Reaction Details tramadol AdvReac Severe Hallucinati Verified 05/28/18 04:32 ons diclofenac AdvReac Intermediate GI Upset Verified 05/28/18 04:32 ibuprofen AdvReac Intermediate Bleeding Verified 05/28/18 04:32 misoprostol AdvReac Intermediate GI Upset Verified 05/28/18 04:40 Home Medications: Home Medications Carboxymethylcellulose Sodium [Refresh Liquigel] 1 % BOTH EYES BID PRN 07/14/18 [History Confirmed 07/14/18] Citalopram TAB* [Celexa TAB*] 40 mg PO DAILY 07/14/18 [History Confirmed ] Epinastine 0.05% OPHTH(NF) [Elestat 0.05% OPTH GIANFRANCO (NF)] 1 drop BOTH EYES BEDTIME 07/14/18 [History Confirmed 07/14/18] Insulin ASPART (NF) [Novolog (NF)] 0 unit SUBCUT TID WITH MEALS 07/14/18 [ History Confirmed 07/14/18] Lisinopril TAB* [Prinivil TAB 5 MG*] 5 mg PO DAILY 07/14/18 [History Confirmed 07/14/18] Spironolactone TAB* [Aldactone TAB 25 MG*] 12.5 - 25 mg PO DAILY 07/14/18 [ History Confirmed 07/14/18] PMH/Surg Hx/FS Hx/Imm Hx Endocrine/Hematology History: Reports: Hx Diabetes - TYPE II- INSULIN FOR, Hx Thyroid Disease - ON MEDICATION FOR, Hx Anemia - OCCASIONALLY Cardiovascular History: Reports: Hx Hypertension - ON MEDICATION FOR, Other Cardiovascular Problems/Disorders - 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 Respiratory History: Reports: Hx Asthma - SEASONAL, Hx Seasonal Allergies, Hx Sleep Apnea Denies: Hx Chronic Obstructive Pulmonary Disease (COPD), Other Respiratory Problems/Disorders GI History: Reports: Hx Gastroesophageal Reflux Disease - ON MEDICATION FOR, Hx Hiatal Hernia Denies: Hx Ulcer Musculoskeletal History: Reports: Hx Arthritis - BILATERAL FEET, RIGHT KNEE, BILATERAL SHOULDERS-OSTEOARTHRITIS, Hx Fibromyalgia, Other Musculoskeletal History - FIBROMYALGIA Sensory History: Reports: Hx Cataracts - BILATERAL, Hx Contacts or Glasses - GLASSES Denies: Hx Hearing Aid Opthamlomology History: Reports: Hx Cataracts - BILATERAL, Hx Contacts or Glasses - GLASSES Neurological History: Reports: Hx Headaches, Hx Migraine - occular, Other Neuro Impairments/Disorders - FIBROMYALGIA Psychiatric History: Reports: Hx Depression - Cancer History Hx Chemotherapy: No Hx Radiation Therapy: No - Surgical History Surgery Procedure, Year, and Place: [id number]. 1982-REMOVAL OF GALLBLADDER- [facility]. 1997-LEFT CARPAL [place] [place] CARPAL [place]EL [place] [place] REPAIR MULIPLE BREAKS IN THE RIGHT [id number]. REMOVE TUMOR LEFT HAND- [facility] [place]. LEFT AND RIGHT CATARACT REMOVAL- [facility] [place] Hx Anesthesia Reactions: Yes - STARTED TO WAKE A LITTLE TOO SOON WITH 1 CARPAL TUNNEL AND 1 CATARACT Infectious Disease History: No Infectious Disease History: Denies: Hx Clostridium Difficile, Hx Hepatitis, Hx Human Immunodeficiency Virus (HIV), Hx of Known/Suspected MRSA, Hx Shingles, Hx Tuberculosis, Hx Known/ Suspected VRE, Hx Known/Suspected VRSA, History Other Infectious Disease, Traveled Outside the [place] in Last 30 Days - Family History Known Family History: Positive: Cardiac Disease - [place], Other - Stroke, skin cancer - Social History Alcohol Use: None Substance Use Type: Reports: None Substance Use Comment - Amount & Last Used: NEEDED DILAUDID FOR PAIN Hx Tobacco Use: Yes Smoking Status (MU): Former Smoker Type: Cigarettes Amount Used/How Often: 2-3 PPD X 35 Have You Smoked in the Last Year: No Review of Systems Negative: Fever, Chills Negative: Blurred Vision, Diplopia Cardiovascular: Other - POS: hypertension Negative: Vomiting, Nausea Musculoskeletal: Other - POS: neck pain Positive: Headache All Other Systems Reviewed And Are Negative: Yes Physical Exam - Summary Physical Exam Summary: VITAL SIGNS: Reviewed. GENERAL: Patient is a well-developed and obese female who is lying comfortable in the stretcher. Patient is not in any acute respiratory distress. HEAD AND FACE: No signs of trauma. No ecchymosis, hematomas or skull depressions. No sinus tenderness. EYES: PERRLA, EOMI x 2, No injected conjunctiva, no nystagmus. EARS: Hearing grossly intact. Ear canals and tympanic membranes are within normal limits. MOUTH: Oropharynx within normal limits. NECK: Supple, trachea is midline, no adenopathy, no JVD, no carotid bruit, no c- spine tenderness, neck with full ROM. CHEST: Symmetric, no tenderness at palpation LUNGS: Clear to auscultation bilaterally. No wheezing or crackles. CVS: Regular rate and rhythm, S1 and S2 present, no murmurs or gallops appreciated. ABDOMEN: Soft, non-tender. No signs of distention. No rebound, no guarding, and no masses palpated. Bowel sounds are normal. EXTREMITIES: FROM in all major joints, no edema, no cyanosis or clubbing. NEURO: Alert and oriented x 3. No acute neurological deficits. Speech is normal and follows commands. SKIN: Dry and warm Triage Information Reviewed: Yes Vital Signs On Initial Exam: Initial Vitals Temp Pulse Resp BP Pulse Ox 98.6 F 73 18 186/85 98 07/14/18 14:44 07/14/18 14:44 07/14/18 14:44 07/14/18 14:44 07/14/18 14:44 Vital Signs Reviewed: Yes Diagnostics - Vital Signs Vital Signs Temp Pulse Resp BP Pulse Ox 07/14/18 14:44 98.6 F 73 18 186/85 98 - Laboratory Result Diagrams: 07/14/18 15:47 07/14/18 15:47 Lab Statement: Any lab studies that have been ordered have been reviewed, and results considered in the medical decision making process. - EKG 15:04 Cardiac Rate: NL - at 86 bpm EKG Rhythm: Sinus Rhythm Summary of EKG Findings: No ST elevations. Re-Evaluation - Re-Evaluation First Eval Re-Evaluation Time: 17:16 Change: Improved Comment: Blood pressure is 128/64. Patient will be discharged home with follow up from her PCP. Hypertension Course/Dx - Course Assessment/Plan: Patient is a 72-year-old female who presents to the emergency department with a chief complaint of having a headache and increased blood pressure. The physical therapist took the blood pressure 3 times it was more than 200/116. Therefore the patient was sent to the emergency room for further workup and management. Test results without any significant abnormality, urinalysis is negative for UTI. In the ED course the patient was given Tylenol for the headache and Clonidine for high blood pressure and at this point the patient's blood pressure is 128/64. The patients headache has resolved. At this point I discussed all my findings and test results with the patient and the need to follow-up with her primary care physician. The patient is hemodynamically stable, alert and oriented 3. All her questions were answered and she has no further concerns. - Diagnoses Provider Diagnoses: Uncontrolled hypertension, Headache Discharge - Sign-Out/Discharge Documenting (check all that apply): Patient Departure - Discharge home Patient Received Moderate/Deep Sedation with Procedure: No - Discharge Plan Condition: Stable Disposition: HOME Patient Education Materials: Hypertension (ED) Referrals: Bravo West MD [Primary Care Provider] - Additional Instructions: Follow-up with primary care physician next 2 days. Return to the emergency department if the symptoms return. - Billing Disposition and Condition Condition: STABLE Disposition: Home - Attestation Statements Document Initiated by Scribe: Yes Documenting Scribe: Mariela Estrada Provider For Whom Mingibe is Documenting (Include Credential): Artem Prieto MD Scribe Attestation: Mariela Rasmussen, scribed for Artem Prieto MD on 07/14/18 at 1847. Scribe Documentation Reviewed: Yes Provider Attestation: The documentation as recorded by the Mariela reddy accurately reflects the service I personally performed and the decisions made by , Artem Prieto MD Status of Scribe Document: Viewed
[2018-07-14] MEDS ORDERED: cloNIDine TAB* 0.1 MG PO ONE (15:17)
[2018-07-14] MEDS: Acetaminophen TAB* 325 MG PO ONE ×2 (15:41→17:24)
[2018-07-14 15:54] LABS: ABS Basophils 0.1 10^3/ul (0-0.2); ABS Eosinophils 0.2 10^3/ul (0-0.6); ABS Lymphocytes 1.9 10^3/ul (1.0-4.8); ABS Monocytes 0.7 10^3/ul (0-0.8); ABS Neutrophils 8.2 10^3/ul (1.5-7.7); ABS Nucleated RBC 0 10^3/ul; Eosinophil % 1.5 %; Hematocrit 35 % (33-41); Hemoglobin 12.3 g/dL (12.0-16.0); Lymphocyte % 17.1 %; Mean Corpuscular HGB Conc 35 g/dL (31-36); Mean Corpuscular Hemoglobin 31 pg (27-31); Mean Corpuscular Volume 89 fL (80-97); Mean Platelet Volume 9.5 fL (7.4-10.4); Nucleated Red Blood Cells % 0.1; Platelet Count 283 10^3/uL (150-450); Red Blood Count 3.97 10^6 /uL (3.70-4.87); Red Cell Distribution Width 14 % (10.5-15); White Blood Count 11.1 10^3/uL (3.5-10.8)
[2018-07-14 16:14] LABS: Albumin/Globulin Ratio 1.5 (1-3); BUN/Creatinine Ratio 14.1 (8-20); EGFR African American 72.6 (>60); Globulin 2.6 g/dL (2-4); Potassium 4.2 mmol/L (3.5-5.0); Total Bilirubin 0.6 mg/dL (0.2-1.0); Total Protein 6.6 g/dL (6.4-8.9)
[2018-07-14 16:28] LABS: Urine Appearance Cloudy; Urine Bacteria Absent (Absent); Urine Bilirubin Negative (Negative); Urine Blood Negative (Negative); Urine Color Yellow; Urine Glucose Negative (Negative); Urine Ketones Negative (Negative); Urine Nitrite Negative (Negative); Urine Protein Negative (Negative); Urine Red Blood Cell Absent (Absent); Urine Squamous Epithelial Cell Present (Absent); Urine Urobilinogen Negative (Negative); Urine White Blood Cell 2+(11-20/hpf) (Absent)
[2018-07-14 17:32] VITALS: BP 121/88
[2018-07-15 13:25] LABS: TSH (Thyroid Stimulating Horm) 1.35 mcIU/mL (0.34-5.60)
[2018-07-15 17:54] LABS: Erythrocyte Sed Rate 30 mm/Hr (0-30)
== END 2018-07-14 17:34 | disposition home or self-care (01) ==
LOC: ED 14:38
DX: I10 Essential (primary) hypertension (principal); R51 Headache; M54.2 Cervicalgia; Z88.0 Allergy status to penicillin; E11.9 Type 2 diabetes mellitus without complications; K21.9 Gastro-esophageal reflux disease without esophagitis; Z87.891 Personal history of nicotine dependence
CPT/HCPCS: 36415; 80053; 81003; 81015; 82375; 84443; 85025; 85652; 87086; 93005; 99283; A9270-GY

== ENCOUNTER 2023-02-28 18:40 | Observation (INO) ==
[2023-02-28] MEDS ORDERED: NS 0.9% 1000 ml BAG 2,000 ML IV ONE (19:09)
[2023-02-28 19:50] LABS: ABS Basophils 0.1 10^3/uL (0.0-0.1); ABS Eosinophils 0.2 10^3/uL (0.0-0.5); ABS Lymphocytes 1.3 10^3/uL (1.0-4.8); ABS Monocytes 0.8 10^3/uL (0.0-0.9); ABS Neutrophils 5.7 10^3/uL (1.5-7.6); ABS Nucleated RBC 0.01 10^3/ul; Eosinophil % 2.2 %; Hematocrit 31.5 % (35-45); Hemoglobin 10.7 g/dL (11.5-14.3); Lymphocyte % 15.9 %; Mean Corpuscular Hemoglobin 31.4 pg (27-33); Mean Corpuscular Volume 92.4 fL (80-97); Mean Platelet Volume 10.7 fL (7.5-11.2); Nucleated Red Blood Cells % 0.1 %/100WBC (0.0-0.8); Platelet Count 236 10^3/uL (150-450); Red Cell Distribution Width 14.6 % (12-17); White Blood Count 7.9 10^3/uL (3.8-11.8)
[2023-02-28 19:51] LABS: Urine Bacteria Absent (Absent); Urine Red Blood Cell Trace(0-2/hpf) (Absent); Urine Squamous Epithelial Cell Present (Absent); Urine White Blood Cell Trace(0-5/hpf) (Absent)
[2023-02-28 20:00] LABS: INR 1.17 (0.83-1.13)
[2023-02-28 20:01] LABS: Urine Appearance Clear; Urine Bilirubin Negative (Negative); Urine Blood 1+ (Negative); Urine Color Yellow; Urine Glucose 3+(>=500 mg/dL) (Negative); Urine Ketones Negative (Negative); Urine Nitrite Negative (Negative); Urine Protein 1+(30 mg/dL) (Negative); Urine Specific Gravity 1.015 (1.002-1.030); Urine Urobilinogen Negative (Negative)
[2023-02-28 20:22] LABS: ALT 15 U/L (7-52); Albumin 4.1 g/dL (3.2-5.2); Albumin/Globulin Ratio 1.3 (1-3); Alkaline Phosphatase 91 U/L (35-149); Anion Gap 8 mmol/L (2-16); Blood Urea Nitrogen 56 mg/dL (6-24); C Reactive Protein 43.39 mg/L (<8.01); CO2 Carbon Dioxide 27 mmol/L (22-32); Calcium 9.6 mg/dL (8.6-10.3); Chloride 96 mmol/L (101-111); Globulin 3.1 g/dL (2-4); Glucose 512 mg/dL (70-100); Magnesium 1.9 mg/dL (1.9-2.7); Sodium 131 mmol/L (135-145); Total Bilirubin 0.7 mg/dL (0.2-1.0); Total Protein 7.2 g/dL (6.4-8.9)
[2023-02-28 20:59] LABS: TSH Ultra Thyroid Stim Horm 6.93 mcIU/mL (0.34-5.60)
[2023-03-01 02:03] LABS: Glucose Confirmatory 465 mg/dL (70-100)
[2023-03-01] MEDS ORDERED: Fluticasone NASAL SPRAY 50MCG 16 gm SPRAY BTL BOTH NARES PRN (02:15)
[2023-03-01] MEDS ORDERED: Dextrose 50% Syringe 50 ml 25 GM/50 ML SYRINGE IV PUSH PRN ×2 (02:22→02:24)
[2023-03-01] MEDS: Insulin GLARGINE 100 un/ml 10 ml VIAL SUBCUT SCH (02:37)
[2023-03-01 03:19] LABS: Free T4 1.02 ng/dL (0.61-1.12)
[2023-03-01] MEDS: Heparin 5000 UNITS/ML 1 mL VIAL SUBCUT SCH ×3 (05:58→23:10)
[2023-03-01] MEDS: Aspirin EC 81 mg TAB.EC (enteric coated) PO SCH (09:34)
[2023-03-01] MEDS: Polyethylene Glycol 3350 17 GM PACKET PO SCH (09:50)
[2023-03-01 10:01] LABS: Calcium 9.2 mg/dL (8.6-10.3); Creatinine, Serum 1.45 mg/dL (0.51-0.95); Potassium 4.7 mmol/L (3.5-5.0); eGFR CKD-EPI 37.2 (>60)
[2023-03-01] MEDS: Lidocaine PATCH 5% PATCH TRANSDERM SCH (19:25)
[2023-03-02] MEDS: Heparin 5000 UNITS/ML 1 mL VIAL SUBCUT SCH ×2 (05:47→16:13)
[2023-03-02] MEDS: Insulin GLARGINE 100 un/ml 10 ml VIAL SUBCUT SCH (09:14)
[2023-03-02 09:26] LABS: Calcium 8.8 mg/dL (8.6-10.3); Creatinine, Serum 1.26 mg/dL (0.51-0.95)
[2023-03-02] MEDS: Aspirin EC 81 mg TAB.EC (enteric coated) PO SCH (09:40)
[2023-03-02] MEDS: Lidocaine PATCH 5% PATCH TRANSDERM SCH (09:40)
[2023-03-02] MEDS: Polyethylene Glycol 3350 17 GM PACKET PO SCH (16:05)
[2023-03-02 18:17] VITALS: BP 138/46
== END 2023-03-02 18:10 | disposition home or self-care (01) ==
LOC: EDHOLD 18:40 → ED 18:40 → SUATTDRO 03-01 02:13 → MEDTELE 03-01 06:14
PROVIDERS: ADMIT Internal Medicine; ATTEND Student in an Organized Health Care Education/Training Program

== ENCOUNTER 2023-09-24 20:28 | Observation (INO) ==
[2023-09-24 21:02] LABS: INR 1.13 (0.83-1.13)
[2023-09-24 21:03] LABS: ABS Basophils 0.1 10^3/uL (0.0-0.1); ABS Eosinophils 0.2 10^3/uL (0.0-0.5); ABS Lymphocytes 1.9 10^3/uL (1.0-4.8); ABS Monocytes 0.6 10^3/uL (0.0-0.9); Eosinophil % 2.8 %; Hematocrit 26.4 % (35-45); Hemoglobin 8.9 g/dL (11.5-14.3); Lymphocyte % 21.4 %; Mean Corpuscular Hemoglobin 31.9 pg (27-33); Mean Corpuscular Hgb Conc 33.6 g/dL (31-36); Mean Platelet Volume 10.3 fL (7.5-11.2); Platelet Count 222 10^3/uL (150-450); Red Blood Count 2.78 10^6/uL (3.63-4.92); Red Cell Distribution Width 16.5 % (12-17); White Blood Count 8.8 10^3/uL (3.8-11.8)
[2023-09-24 21:25] LABS: Albumin 4.4 g/dL (3.2-5.2); Albumin/Globulin Ratio 1.8 (1-3); Creatinine, Serum 1.87 mg/dL (0.51-0.95); Globulin 2.5 g/dL (2-4); Total Bilirubin 0.4 mg/dL (0.2-1.0); Total Protein 6.9 g/dL (6.4-8.9); eGFR CKD-EPI 27.4 (>60)
[2023-09-24] MEDS: Dextrose 50% Syringe 50 ml 25 GM/50 ML SYRINGE IV PUSH ONE (22:00)
[2023-09-24] MEDS: Furosemide 40 mg/4 ml IV VIAL IV SLOW PU ONE (22:00)
[2023-09-24 22:47] LABS: High Sensitivity Troponin 1 Hr 17 pg/mL (<15)
[2023-09-25 01:19] LABS: Calcium 8.9 mg/dL (8.6-10.3); Creatinine, Serum 1.85 mg/dL (0.51-0.95); eGFR CKD-EPI 27.7 (>60)
[2023-09-25] MEDS: Sodium Polystyrene ORAL.SUSP 15 GM/60 ML BTL PO ONE (03:06)
[2023-09-25] MEDS ORDERED: Dextrose 50% Syringe 50 ml 25 GM/50 ML SYRINGE IV PUSH PRN ×2 (05:06→05:07)
[2023-09-25] MEDS: Heparin 5000 UNITS/ML 1 mL VIAL SUBCUT SCH (05:59)
[2023-09-25] MEDS: Albuterol HFA INHALER 8 gm MDI INH SCH (05:59)
[2023-09-25 06:36] LABS: ABS Basophils 0.1 10^3/uL (0.0-0.1); ABS Eosinophils 0.3 10^3/uL (0.0-0.5); ABS Monocytes 0.7 10^3/uL (0.0-0.9); ABS Neutrophils 6.5 10^3/uL (1.5-7.6); ABS Nucleated RBC 0.01 10^3/ul; Eosinophil % 2.9 %; Hematocrit 27.1 % (35-45); Hemoglobin 9.1 g/dL (11.5-14.3); Lymphocyte % 20.9 %; Mean Corpuscular Hgb Conc 33.7 g/dL (31-36); Mean Corpuscular Volume 94.9 fL (80-97); Mean Platelet Volume 10.6 fL (7.5-11.2); Nucleated Red Blood Cells % 0.1 %/100WBC (0.0-0.8); Platelet Count 255 10^3/uL (150-450); Red Blood Count 2.86 10^6/uL (3.63-4.92); Red Cell Distribution Width 16.2 % (12-17); White Blood Count 9.6 10^3/uL (3.8-11.8)
[2023-09-25] MEDS ORDERED: Sulfur Hexaflouride MICROSPHR 25 MG VIAL ONE (08:22)
[2023-09-25 08:35] LABS: Albumin 4.3 g/dL (3.2-5.2); Albumin/Globulin Ratio 1.7 (1-3); Calcium 9.2 mg/dL (8.6-10.3); Creatinine, Serum 1.9 mg/dL (0.51-0.95); Globulin 2.6 g/dL (2-4); Magnesium 1.9 mg/dL (1.9-2.7); Phosphorus 5.1 mg/dL (2.5-5.0); Potassium 6.3 mmol/L (3.5-5.0); Total Bilirubin 0.5 mg/dL (0.2-1.0); Total Protein 6.9 g/dL (6.4-8.9); eGFR CKD-EPI 26.9 (>60)
[2023-09-25] MEDS: Aspirin EC 81 mg TAB.EC (enteric coated) PO SCH (09:11)
[2023-09-25] MEDS: Insulin GLARGINE 100 un/ml 10 ml VIAL SUBCUT SCH (09:13)
[2023-09-25] MEDS: SODIUM ZIRCONIUM CYCLOSILICATE 10 GM PACKET PO ONE (12:28)
[2023-09-25] MEDS: Dextrose 50% Syringe 50 ml 25 GM/50 ML SYRINGE IV PUSH ONE (13:07)
[2023-09-25] MEDS: 1/2 NS IV SCH ×2 (14:58→15:17)
[2023-09-25] MEDS: SODIUM BICARB IV SCH ×2 (14:58→15:17)
[2023-09-25] MEDS: D5W IV SCH ×2 (14:58→15:17)
[2023-09-25] MEDS ORDERED: D5W IV SCH (15:00)
[2023-09-25] MEDS ORDERED: 1/2 NS IV SCH (15:00)
[2023-09-25] MEDS ORDERED: SODIUM BICARB IV SCH (15:00)
[2023-09-25] MEDS ORDERED: Albuterol HFA INHALER 8 gm MDI INH PRN (17:32)
[2023-09-25 18:44] LABS: Calcium 8.6 mg/dL (8.6-10.3); Creatinine, Serum 2.03 mg/dL (0.51-0.95); Potassium 5.1 mmol/L (3.5-5.0); eGFR CKD-EPI 24.8 (>60)
[2023-09-26 06:52] LABS: Hematocrit 23.4 % (35-45); Mean Corpuscular Hemoglobin 32.5 pg (27-33); Mean Corpuscular Hgb Conc 34.3 g/dL (31-36); Mean Corpuscular Volume 94.8 fL (80-97); Mean Platelet Volume 10.4 fL (7.5-11.2); Platelet Count 167 10^3/uL (150-450); Red Blood Count 2.47 10^6/uL (3.63-4.92); Red Cell Distribution Width 15.7 % (12-17); White Blood Count 6.2 10^3/uL (3.8-11.8)
[2023-09-26 07:25] LABS: Calcium 8.1 mg/dL (8.6-10.3); Creatinine, Serum 1.77 mg/dL (0.51-0.95); Magnesium 1.8 mg/dL (1.9-2.7); Potassium 5.1 mmol/L (3.5-5.0); eGFR CKD-EPI 29.2 (>60)
[2023-09-26] MEDS: Magnesium Sulfate 2 gm BAG 2 GM/50 ML BAG IVPB ONE (10:01)
[2023-09-26] MEDS: SODIUM ZIRCONIUM CYCLOSILICATE 10 GM PACKET PO ONE (10:04)
[2023-09-26 10:14] LABS: TSH Ultra Thyroid Stim Horm 6.72 mcIU/mL (0.34-5.60)
[2023-09-26 10:22] LABS: Ferritin 128.4 ng/mL (11-307)
[2023-09-26 10:25] LABS: Folate 7.55 ng/mL (5.90-24.80)
[2023-09-26 16:58] LABS: Calcium 8.2 mg/dL (8.6-10.3); Creatinine, Serum 1.57 mg/dL (0.51-0.95); Potassium 4.5 mmol/L (3.5-5.0); eGFR CKD-EPI 33.8 (>60)
[2023-09-27 06:49] LABS: Calcium 8.5 mg/dL (8.6-10.3); Creatinine, Serum 1.54 mg/dL (0.51-0.95); Magnesium 2.2 mg/dL (1.9-2.7); Potassium 4.8 mmol/L (3.5-5.0); eGFR CKD-EPI 34.6 (>60)
[2023-09-27 06:52] LABS: Hematocrit 23.7 % (35-45); Hemoglobin 8.2 g/dL (11.5-14.3); Mean Corpuscular Hemoglobin 32.8 pg (27-33); Mean Corpuscular Hgb Conc 34.7 g/dL (31-36); Mean Corpuscular Volume 94.6 fL (80-97); Mean Platelet Volume 10.5 fL (7.5-11.2); Platelet Count 177 10^3/uL (150-450); Red Cell Distribution Width 15.8 % (12-17); White Blood Count 6.2 10^3/uL (3.8-11.8)
[2023-09-27 15:54] VITALS: BP 138/87
== END 2023-09-27 14:30 | disposition home or self-care (01) ==
LOC: ED 20:28 → EDHOLD 20:28 → SUATTDRO 09-25 04:13 → MEDTELE 09-25 15:15
PROVIDERS: ADMIT Internal Medicine; ATTEND Internal Medicine